=== PATIENT | male | born 1970 | race Two or more races ===

== ENCOUNTER 2017-03-08 18:18 | Emergency (ER) | payer OTHER ==
[~2017-03-08] VITALS: Ht 175.3 cm; Wt 99.8 kg
[2017-03-08 21:26] VITALS: BP 134/86
== END 2017-03-08 21:31 | disposition home or self-care (01) ==
LOC: ER 18:20
DX: S61.012A Laceration without foreign body of left thumb without damage to nail, initial encounter (principal); E11.9 Type 2 diabetes mellitus without complications; W26.0XXA Contact with knife, initial encounter; Y93.89 Activity, other specified; Y99.8 Other external cause status; Y92.89 Other specified places as the place of occurrence of the external cause
CPT/HCPCS: 12001; 82962